=== PATIENT | female | born 1950 | race Caucasian/White ===

== ENCOUNTER 2023-12-04 21:20 | Emergency (ER) | payer MEDICARE, BC ==
[2023-12-04 21:37] VITALS: BP 168/93
[2023-12-04] MEDS ORDERED: LORazepam 2 MG/ML IV ONE (21:45)
[2023-12-04 21:46] VITALS: BP 128/74
[2023-12-04 21:58] LABS: BASO% 0.4 % (0-3); EOS% 1.7 % (0-8); HEMATOCRIT 35.3 % (37.0-47.0); HEMOGLOBIN 12.1 g/dl (12.0-16.0); IMMATURE GRANULOCYTES 0.2 % (0.0-5.0); LYMPH% 50.8 % (15-41); MEAN CELL VOLUME 90.5 fL CALC (80.0-100.0); MEAN CORPUSCULAR HGB CONC 34.3 g/dL CAL (32.0-36.0); MONO% 7.6 % (2-13); NEUT# 3.97 thou/uL (2.00-7.15); NEUT% 39.3 % (42-76); RED BLOOD COUNT 3.9 mill/uL (4.20-5.60); RED CELL DISTRI WIDTH 12.8 % (11.5-15.5)
[2023-12-04 22:01] VITALS: BP 117/93
[2023-12-04 22:10] LABS: ALBUMIN 4.3 g/dL (3.2-5.0); ALKALINE PHOSPHATASE 50 u/l (38-126); BILIRUBIN, TOTAL 0.6 mg/dL (0.02-1.3); BUN 9 mg/dL (8-23); BUN/CREATININE RATIO 13 (12-20 (CALC)); CARBON DIOXIDE 24 mmol/l (22-30); CHLORIDE 99 mmol/l (95-108); CREATININE 0.7 mg/dL (0.5-1.0); ESTIMATED GFR 91 ML/MIN (>=90 (CALC)); SGOT/AST 33 u/l (9-36); TOTAL PROTEIN 7.8 g/dL (6.3-8.2)
[2023-12-04 22:20] LABS: ANION GAP 9 (6-22 (CALC)); POTASSIUM 3.8 mmol/l (3.5-5.1); SODIUM 128 mmol/l (137-146)
[2023-12-04] MEDS ORDERED: COZAAR25 MG PO (22:32)
[2023-12-04] MEDS ORDERED: MELOXICAM15 MG PO (22:32)
[2023-12-04] MEDS ORDERED: OMEPRAZOLE DR40 MG PO (22:33)
[2023-12-04] MEDS ORDERED: AMBIEN10 MG PO (22:33)
[2023-12-04] MEDS ORDERED: FISH OIL1000 M1 PO (22:33)
[2023-12-04 22:55] LABS: D-DIMER 0.62 mg/L (0.19-0.60)
[2023-12-04 23:00] LABS: PROTHROMBIN TIME 9.7 SECONDS (9.0-12.5)
[2023-12-04 23:45] LABS: URINE BILIRUBIN - DIPSTICK Negative (NEGATIVE); URINE BLOOD DIPSTICK Trace-lysed (NEGATIVE); URINE GLUCOSE - DIPSTICK Negative (NEGATIVE); URINE KETONE Negative (NEGATIVE); URINE PROTEIN - DIPSTICK Negative (NEG-TRACE); URINE SPECIFIC GRAVITY <=1.005; URINE UROBILINOGEN - DIPSTICK 0.2 E.U./dL (0.2)
[2023-12-04 23:54] LABS: URINE COLOR Yellow; URINE LEUK ESTERASE Small (NEGATIVE)
[2023-12-04 23:55] LABS: URINE EPITHELIAL CELLS FEW EPI/hpf (0-FEW); URINE NITRITE - DIPSTICK Negative (Negative)
[2023-12-04 23:56] LABS: URINE BACTERIA FEW hpf
[2023-12-05] MEDS ORDERED: VISTARIL25 MG PO (00:14)
[2023-12-05 00:47] VITALS: BP 117/93
[2023-12-07] MEDS ORDERED: KEFLEX500 MG PO (16:35)
== END 2023-12-05 01:00 | disposition home or self-care (01) ==
LOC: ED 21:20
PROVIDERS: Family Medicine
DX: F41.9 Anxiety disorder, unspecified (principal); I10 Essential (primary) hypertension; Z85.819 Personal history of malignant neoplasm of unspecified site of lip, oral cavity, and pharynx; R06.02 Shortness of breath; R82.71 Bacteriuria
CPT/HCPCS: J2060

== ENCOUNTER 2024-03-02 21:31 | Emergency (ER) | payer MEDICARE, BC ==
[~2024-03-02] VITALS: Ht 165.1 cm; Wt 785.0 kg
[~2024-03-02 21:31] MED LIST: AMBIEN10 MG PO; COZAAR25 MG PO; FISH OIL1000 M1 PO; KEFLEX500 MG PO; MELOXICAM15 MG PO; OMEPRAZOLE DR40 MG PO; VISTARIL25 MG PO
[2024-03-02] MEDS ORDERED: LORazepam 2 MG/ML IM ONE (21:50)
[2024-03-02] MEDS ORDERED: XANAX0.5 MG PO (23:03)
[2024-03-02 23:13] VITALS: BP 112/60
== END 2024-03-02 23:15 | disposition home or self-care (01) ==
LOC: ED 21:31
DX: F41.9 Anxiety disorder, unspecified (principal); I10 Essential (primary) hypertension; Z85.819 Personal history of malignant neoplasm of unspecified site of lip, oral cavity, and pharynx
CPT/HCPCS: J2060